=== PATIENT | female | born 1945 | race Caucasian/White ===

== ENCOUNTER 2019-05-17 20:34 | Inpatient (IN) | payer MEDICARE ==
[2019-05-18 01:11] VITALS: BMI 38.2
[2019-05-18] MEDS ORDERED: VANCOMYCIN IV PER PHARMACY 1 EACH MISC MISCELLANE PRN (03:45)
[2019-05-18] MEDS ORDERED: VANCOMYCIN 1,000 MG in SODIUM CHLORIDE 0.9% 250 ML IVPB STA (03:45)
[2019-05-18] MEDS ORDERED: ONDANSETRON 4 MG/2 ML VIAL IVP PRN (03:47)
[2019-05-18] MEDS ORDERED: VANCOMYCIN 1,750 MG in SODIUM CHLORIDE 0.9% 500 ML 500 ML IVPB ONE (05:00)
[2019-05-18] MEDS: SODIUM CHLORIDE 0.9% 1,000 ML IV SCH ×2 (05:24→21:59)
[2019-05-18] MEDS: HYDROcodone/APAP 5-325MG 1 EACH TAB PO PRN ×2 (06:06→22:26)
[2019-05-18] MEDS: PIPERACILLIN-TAZOBACTAM 3.375 GM in SODIUM CHLORIDE 0.9% 100 ML IVPB SCH ×3 (07:11→21:59)
[2019-05-18 07:17] LABS: Glucose,Whole Blood 175 mg/dL (75-99)
[2019-05-18] MEDS: INSULIN ASPART (NovoLOG) 100 UNIT/ML VIAL SQ SCH ×5 (07:47→22:02)
[2019-05-18] MEDS: GLIMEPIRIDE 4 MG TAB PO SCH (07:47)
[2019-05-18] MEDS: GABAPENTIN 300 MG CAP PO SCH ×3 (07:48→21:57)
[2019-05-18 09:10] LABS: INR 0.8 (<1.2); Prothrombin Time 9.3 sec (9.0-12.0)
[2019-05-18] MEDS ORDERED: TEMAZEPAM 15 MG CAP PO PRN (09:32)
[2019-05-18] MEDS ORDERED: ALPRAZolam 0.25 MG TAB PO PRN (09:32)
[2019-05-18 10:00] LABS: HCT 31.8 % (34.0-46.0); HGB 10.9 gm/dL (11.4-16.0); MCH 30.4 pg (25.0-35.0); MCHC 34.2 g/dL (31.0-37.0); MCV 88.9 fL (80.0-100.0); Mean Platelet Volume 7.5; Platelet Count 244 k/uL (150-450); RBC 3.58 m/uL (3.80-5.40); WBC 8.6 k/uL (3.8-10.6)
[2019-05-18] MEDS: MORPHINE SULFATE 4 MG/ML SYRINGE IVP PRN ×2 (11:15→15:25)
[2019-05-18 11:52] LABS: Glucose,Whole Blood 117 mg/dL (75-99)
--- NOTE | 2019-05-18 15:13 | HP ---
HISTORY AND PHYSICAL DATE OF SERVICE: 05/18/2019 CHIEF COMPLAINT: Pain and swelling of the right thigh. HISTORY OF PRESENT ILLNESS: This is a 73-year-old woman with a past history of diabetes mellitus, GERD, hypertension, hyperlipidemia being followed by primary physician in the [place] area, is [place] in [place]. The patient noted infection and swelling in the right thigh for the past several days. tried to express some pus and subsequently because of lack of improvement, patient came to [facility] and patient did get transferred to [facility], admitted for further evaluation and treatment. There is no history of fever, chills, or rigors. No history of headache, loss of consciousness, seizures. Broad-spectrum antibiotics initiated. Infectious Disease and surgical evaluation has been sought. PAST MEDICAL HISTORY: Diabetes, GERD, hypertension, hyperlipidemia. MEDICATIONS: Prior to admission home medications are: 1. Neurontin 300 mg q. 3 days. 2. NovoLog a.c. t.i.d. 3. Tresiba 100 units subcu daily. 4. Prilosec 20 mg daily. 5. Toprol-XL 100 mg b.i.d. 6. Amaryl 4 mg p.o. daily. 7. Flonase 1-2 sprays daily. 8. Multivitamin 1 p.o. daily. 9. Lipitor 20 mg daily. 10.Amitriptyline 10 mg q.h.s. p.r.n. ALLERGIES: None. FAMILY HISTORY: History of lung cancer. SOCIAL HISTORY: No history of smoking. No history of alcohol. REVIEW OF SYSTEMS: ENT: No diminished vision. No diminished hearing. CARDIOVASCULAR SYSTEM: No angina or palpitation. RESPIRATORY: As mentioned earlier. GI: No nausea. : No dysuria. NERVOUS SYSTEM: No numbness or weakness. ALLERGY/IMMUNOLOGY: No asthma or hayfever. MUSCULOSKELETAL: As mentioned earlier. RHEUMATOLOGY: Negative. ENDOCRINE: No diabetes or hypothyroidism. CONSTITUTIONAL: As mentioned earlier. DERMATOLOGY: As mentioned earlier. RHEUMATOLOGY: Negative. PSYCHIATRY: As mentioned earlier. PHYSICAL EXAMINATION: Patient is alert and oriented x3. Pulse 81, blood pressure 153/79, respiration 16, temperature 97.8, pulse ox 94% on room air. HEENT: Oral mucosa moist. NECK: No jugular venous distention. No lymph node enlargement. CARDIOVASCULAR SYSTEM: S1, S2, muffled. RESPIRATION: Breath sounds diminished at the bases, no rhonchi, no crackles. ABDOMEN: Soft, obese, nontender. No mass palpable. LEGS: Significant pain and swelling and some with discharge with significant purulent bloody discharge from the abscess, about 3 x 4 cm with minimal fluctuation in the right posterior thigh present. Pulses felt normally. NERVOUS SYSTEM: As mentioned earlier. Moves all 4 limbs, no focal deficits. LYMPHATICS: No lymph node enlargement. SKIN: As mentioned earlier. JOINTS: No active arthropathy. LABS: WBC 8.7, hemoglobin IS 10.9, creatinine 1.5. ASSESSMENT: 1. Acute abscess of the right thigh with failure of outpatient treatment. 2. Increased creatinine with chronic kidney disease stage III. 3. Anemia of chronic disease, normocytic. 4. Diabetes mellitus type 2. 5. Gastroesophageal reflux disease. 6. Hyperlipidemia. 7. Obesity with body mass index 38.3. RECOMMENDATION: In this 73-year-old woman who presented with multiple medical issues, will monitor the patient closely. Continue with the current management and symptomatic treatment. Will initiate broad-spectrum IV antibiotics. Obtain cultures. DVT prophylaxis. Monitor blood sugars closely, insulin coverage. Infectious Disease and Surgical evaluation. I also recommend a CAT scan of the right thigh without any contrast. Guarded prognosis. Further recommendations to follow. MMODL / IJN: [id number] /
--- NOTE | 2019-05-18 15:32 | P.GSCN ---
History of Present Illness Consult date: 05/18/19 Reason for Consult: right thigh abscess Requesting physician: Shanel Patel History of present illness: CHIEF COMPLAINT: Right thigh abscess HISTORY OF PRESENT ILLNESS: 73-year-old female who was transferred from [facility] secondary to right thigh abscess. Patient states she has a abscess to her posterior right thigh that has been getting worse over the past week. She was evaluated at [facility]. She reports it was drained by the ER physician at [place]. Dressing to right thigh currently with packing noted. Some purulent fluid noted. Patient reports pain is tolerable to right thigh. General surgery was consulted for further evaluation. PAST MEDICAL HISTORY: See list. PAST SURGICAL HISTORY: See list. SOCIAL HISTORY: No illicit drug use. REVIEW OF SYSTEMS: CONSTITUTIONAL: Denies fever or chills. HEENT: Denies blurred vision, vision changes, or eye pain. Denies hemoptysis CARDIOVASCULAR: Denies chest pain or pressure. RESPIRATORY: No shortness of breath. GASTROINTESTINAL: Refer to [facility] for pertinent findings HEMATOLOGIC: Denies bleeding disorders. GENITOURINARY: Denies any blood in urine. SKIN: Reports abscess to right thigh. Denies pruitis. Denies rash. PHYSICAL EXAM: VITAL SIGNS: Reviewed. GENERAL: Well-developed in no acute distress. HEENT: No sclera icterus. Extraocular movements grossly intact. Moist buccal mucosa. Head is atraumatic, normocephalic. ABDOMEN: Soft. Nondistended. Nontender. NEUROLOGIC: Alert and oriented. Cranial nerves II through XII grossly intact. SKIN: Open wound to right choir leader thigh, approximately the size of a quarter with packing present. Surrounding erythema. Some purulent drainage noted. Mild tenderness. LABORATORY DATA: WBC 8.6. Hemoglobin 10.9. ASSESSMENT: 1. Right thigh abscess PLAN: Patient evaluated with Dr. Fleming. Wound is open and currently draining. Continue daily dressing changes. Wound cultures ordered. await results. Continue IV antibiotics. Recommend tight glucose control for optimal healing. CAT scan has been ordered by internal medicine. Await results. No surgical intervention recommended at this time. Continue conservative management. Nurse practitioner note has been reviewed by physician. Signing provider agrees with the documented findings, assessment, and plan of care. Past Medical History Past Medical History: Diabetes Mellitus, Eye Disorder, GERD/Reflux, Hyperlipidemia, Hypertension History of Any Multi-Drug Resistant Organisms: None Reported Past Psychological History: No Psychological Hx Reported Smoking Status: Never smoker Past Alcohol Use History: None Reported Past Drug Use History: None Reported - Past Family History Father Family Medical History: Cancer Additional Family Medical History / Comment(s): at 67 from lung cancer. Mother Family Medical History: Cancer Additional Family Medical History / Comment(s): at 67 from lung cancer. Medications and Allergies Home Medications Medication Instructions Recorded Confirmed Type Amitriptyline HCl 10 mg PO HS PRN 05/18/19 05/18/19 History Atorvastatin Calcium [Lipitor] 20 mg PO DAILY 05/18/19 05/18/19 History Fluticasone Nasal [place] [Flonase 1 - 2 spray EA NOSTRIL DAILY 05/18/19 05/18/19 History Nasal [place]] Gabapentin [Neurontin] 300 mg PO Q3H MDD 7 CAPS 05/18/19 05/18/19 History Glimepiride [Amaryl] 4 mg PO DAILY 05/18/19 05/18/19 History Insulin Aspart [NovoLOG Flexpen] See Protocol SQ AC-TID 05/18/19 05/18/19 History Insulin Degludec [Tresiba 100 units SQ DAILY 05/18/19 05/18/19 History Flextouch U-200] Metoprolol Succinate [Toprol XL] 100 mg PO DAILY 05/18/19 05/18/19 History Multivitamins, Thera [Multivitamin 1 tab PO DAILY 05/18/19 05/18/19 History (formulary)] Omeprazole [PriLOSEC] 20 mg PO DAILY 05/18/19 05/18/19 History Allergies Allergy/AdvReac Type Severity Reaction Status Date / Time No Known Allergies Allergy Verified 05/18/19 08:36 Surgical - Exam Vital Signs Temp Pulse Resp BP Pulse Ox 97.7 F 79 20 172/81 95 05/17/19 23:55 05/17/19 23:55 05/17/19 23:55 05/17/19 23:55 05/17/19 23:55 Results - Labs 05/18/19 08:28 05/18/19 08:37 Abnormal Lab Results - Last 24 Hours (Table) 05/18/19 05/18/19 05/18/19 Range/Units 07:13 08:28 08:37 RBC 3.58 L (3.80-5.40) m/uL Hgb 10.9 L (11.4-16.0) gm/dL Hct 31.8 L (34.0-46.0) % Creatinine 1.51 H (0.52-1.04) mg/dL POC Glucose (mg/dL) 175 H (75-99) mg/dL 05/18/19 Range/Units 11:42 RBC (3.80-5.40) m/uL Hgb (11.4-16.0) gm/dL Hct (34.0-46.0) % Creatinine (0.52-1.04) mg/dL POC Glucose (mg/dL) 117 H (75-99) mg/dL Diabetes panel 05/18/19 Range/Units 08:37 Creatinine 1.51 H (0.52-1.04) mg/dL Pituitary panel 05/18/19 Range/Units 08:37 Creatinine 1.51 H (0.52-1.04) mg/dL Adrenal panel 05/18/19 Range/Units 08:37 Creatinine 1.51 H (0.52-1.04) mg/dL
--- NOTE | 2019-05-18 16:52 | CT ---
EXAMINATION TYPE: CT lower extremity RT wo con DATE OF EXAM: 05/18/2019 COMPARISON: None HISTORY: 73-year-old female Posterior right thigh abscess x 1 week. TECHNIQUE: Contiguous axial scanning of the right thigh without IV contrast. Coronal and sagittal rec onstructions performed. CT DLP: 615 mGycm Automated exposure control for dose reduction was used. FINDINGS: Moderate degenerative change of the right hip. Cutaneous soft tissue swelling along the posterior aspect of the thigh, greater proximally. At the posterior mid thigh level, there is soft tissue wound extending 1 cm deep to the skin surface and measuring 1.4 cm wide. No discrete abscess is identified. No soft tissue air or edema along the deeper fascial planes of the thigh. No osseous erosions. Moderate knee joint effusion. No Mehta's cyst. Patellofemoral compartment osteoarthrosis. IMPRESSION: EXTENSIVE POSTERIOR THIGH CELLULITIS WITH A 1.4 CM WIDE AND 1 CM DEEP WOUND AT THE MID THIGH LEVEL. N O DISCRETE ABSCESS. NO SPECIFIC SIGNS OF A DEEPER, MORE AGGRESSIVE SOFT TISSUE INFECTION.
[2019-05-18 17:05] LABS: Glucose,Whole Blood 140 mg/dL (75-99)
[2019-05-18 20:30] LABS: Glucose,Whole Blood 280 mg/dL (75-99)
[2019-05-18] MEDS ORDERED: PANTOPRAZOLE 40 MG TABLET PO SCH (21:00)
[2019-05-18] MEDS: AMITRIPTYLINE HCL 10 MG TAB PO SCH (21:57)
[2019-05-18] MEDS: HEPARIN SODIUM,PORCINE 5,000 UNIT/ML 1 ML VIAL SQ SCH (21:58)
[2019-05-18] MEDS: METOPROLOL SUCCINATE (ER) 100 MG TAB.ER.24H PO SCH (21:58)
[2019-05-18] MEDS: ATORVASTATIN 20 MG TAB PO SCH (21:58)
[2019-05-19 02:23] LABS: Glucose,Whole Blood 112 mg/dL (75-99)
[2019-05-19] MEDS: PIPERACILLIN-TAZOBACTAM 3.375 GM in SODIUM CHLORIDE 0.9% 100 ML IVPB SCH ×2 (05:21→13:05)
[2019-05-19] MEDS ORDERED: INSULIN DETEMIR (LEVEMIR) 100 UNIT/ML SYR SQ SCH (07:00)
[2019-05-19 07:17] LABS: Glucose,Whole Blood 80 mg/dL (75-99)
--- NOTE | 2019-05-19 07:18 | P.CONS ---
History of Present Illness - Reason for Consult Consult date: 05/18/19 - Chief Complaint pain right thigh - History of Present Illness 73-year-old woman has a history of diabetes that is usually well controlled last hemoglobin A1c was 6.9, relates that she was do not well the sudden onset of a lesion on the posterior aspect of her right thigh. It started as a small swollen red spot with a couple of days and become quite large and it was swollen and erythematous and had what appeared to be improvement center. Because of this the patient's manipulated the area and was poking it with needles to try to get it to drain. The area did not drain and it worsens dramatically over the next 24 hours,/presents to her local hospital which [place]. She was cared for there for about 2 days because of her lack of improvement she was transferred to our facility for surgical consultation. She this time continues to have severe pain to the right posterior thigh. Although slightly better than admission because of pain control. She has denying high-grade fevers chills rigors or sweats. She's never had difficulty like this in the past. She does not recall any specific injury, she however is in what she calls her summer mode, staying in their fifth wheel at the local campground spending a lot of time outside but does not recall any specific injuries, or bug bites. Review of Systems Patient which is much more comfortable than at her original presentation HEENT:Denies headache or acute visual change. Denies sinus or mouth discomforts. Denies neck stiffness or pain. Denies significant oral cavity pain. Denies difficulty on swallowing. Lungs: Denies significant shortness of breath, cough, sputum production, or hemoptysis. Cardiovascular: Denies significant shortness of breath, chest pain, chest wall pain, orthopnea, dyspnea on exertion, syncope Gastrointestinal:Denies nausea, vomiting, diarrhea, constipation, hematemesis, melena, hematochezia. No no significant change of bowel habit noticed. Musculoskeletal: denies significant myalgias or arthralgias. No new joint swelling. Denies new back pain. Skin: The large swollen erythematous tender spot right posterior thigh Neuro: Denies headache or visual change. Denies any new onset weakness or difficulty with ambulation. Denies falls or seizures. Psychiatric:Denies anxiety or depression. Endocrine: Denies significant fatigue, denies significant weight loss or weight gain. Past Medical History Past Medical History: Diabetes Mellitus, Eye Disorder, GERD/Reflux, Hyperl ipidemia, Hypertension History of Any Multi-Drug Resistant Organisms: None Reported Past Psychological History: No Psychological Hx Reported Additional Psychological History / Comment(s): lives with her and family home. Baseline [place] up with the campground in [facility]. She has no recent international travel. She does not have pets Smoking Status: Never smoker Past Alcohol Use History: None Reported Past Drug Use History: None Reported - Past Family History Father Family Medical History: Cancer Additional Family Medical History / Comment(s): at 67 from lung cancer. Mother Family Medical History: Cancer Additional Family Medical History / Comment(s): at 67 from lung cancer. Medications and Allergies Home Medications and Allergies Comment(s): Current Medications Hydrocodone Bitart/Acetaminophen ([place] 5-325) 1 each PO Q6HR PRN PRN Reason: Pain Last Admin: 05/18/19 22:26 Dose: 1 each Documented by: Alprazolam (Xanax) 0.25 mg PO TID PRN PRN Reason: Anxiety Amitriptyline HCl (Elavil) 10 mg PO [facility] Last Admin: 05/18/19 21:57 Dose: 10 mg Documented by: Atorvastatin Calcium (Lipitor) 20 mg PO [facility] Last Admin: 05/18/19 21:58 Dose: 20 mg Documented by: Fluticasone Propionate (Flonase Nasal [place]) 1 - 2 spray EA NOSTRIL DAILY [facility] Gabapentin (Neurontin) 600 mg PO TID [facility] Last Admin: 05/18/19 21:57 Dose: 600 mg Documented by: Glimepiride (Amaryl) 4 mg PO AC-BRKFST [facility] Last Admin: 05/18/19 07:47 Dose: 4 mg Documented by: Heparin Sodium (Porcine) (Heparin) 5,000 unit SQ Q12HR [facility] Last Admin: 05/18/19 21:58 Dose: 5,000 unit Documented by: Sodium Chloride (Saline 0.9%) 1,000 mls @ 50 mls/hr IV .Q20H [facility] Last Admin: 05/18/19 21:59 Dose: 50 mls/hr Documented by: Piperacillin Sod/Tazobactam (Sod 3.375 gm/ Sodium Chloride) 100 mls @ 25 mls/hr IVPB Q8H [facility] Last Admin: 05/19/19 05:21 Dose: 25 mls/hr Documented by: Vancomycin HCl 1,750 mg/ (Sodium Chloride) 500 mls @ 167 mls/hr IVPB Q36H [facility] Insulin Aspart (Novolog) 10 unit SQ HS [facility] Last Admin: 05/18/19 22:02 Dose: 10 unit Documented by: Insulin Aspart (Novolog) 0 unit SQ ACHS [facility]; Protocol Last Admin: 05/18/19 22:02 Dose: 7 unit Documented by: Insulin Detemir (Levemir) 100 unit SQ DAILY@0700 [facility] Metoprolol Succinate (Toprol Xl) 100 mg PO HS [facility] Last Admin: 05/18/19 21:58 Dose: 100 mg Documented by: Morphine Sulfate (Morphine Sulfate (Inj)) 4 mg IVP Q4HR PRN PRN Reason: Pain Last Admin: 05/18/19 15:25 Dose: 4 mg Documented by: Multivitamins (Theragran) 1 each PO DAILY [facility] Ondansetron HCl (Zofran) 4 mg IVP Q6HR PRN PRN Reason: Nausea And Vomiting Pantoprazole Sodium (Protonix) 40 mg PO AC-BRKFST [facility] Temazepam (Restoril) 15 mg PO HS PRN PRN Reason: Insomnia Home Medications Medication Instructions Recorded Confirmed Type Amitriptyline HCl 10 mg PO HS PRN 05/18/19 05/18/19 History Atorvastatin Calcium [Lipitor] 20 mg PO DAILY 05/18/19 05/18/19 History Fluticasone Nasal [place] [Flonase 1 - 2 spray EA NOSTRIL DAILY 05/18/19 05/18/19 History Nasal [place]] Gabapentin [Neurontin] 300 mg PO Q3H MDD 7 CAPS 05/18/19 05/18/19 History Glimepiride [Amaryl] 4 mg PO DAILY 05/18/19 05/18/19 History Insulin Aspart [NovoLOG Flexpen] See Protocol SQ AC-TID 05/18/19 05/18/19 History Insulin Degludec [Tresiba 100 units SQ DAILY 05/18/19 05/18/19 History Flextouch U-200] Metoprolol Succinate [Toprol XL] 100 mg PO DAILY 05/18/19 05/18/19 History Multivitamins, Thera [Multivitamin 1 tab PO DAILY 05/18/19 05/18/19 History (formulary)] Omeprazole [PriLOSEC] 20 mg PO DAILY 05/18/19 05/18/19 History Allergies Allergy/AdvReac Type Severity Reaction Status Date / Time No Known Allergies Allergy Verified 05/18/19 08:36 Physical Exam Vitals: Vital Signs Temp Pulse Resp BP Pulse Ox 05/19/19 05:00 97.1 F L 74 18 113/69 94 L 05/18/19 21:00 97.7 F 96 20 177/92 97 05/18/19 13:45 97.9 F 81 16 153/79 95 Intake and Output 05/18/19 05/19/19 05/19/19 22:59 06:59 14:59 Intake Total 350 350 Balance 350 350 Intake: Oral 350 350 Other: Voiding Method Toilet # Voids 2 2 Pleasant 73-year-old woman who is quite uncomfortable HEENT: Anicteric conjunctiva are pink and moist nasal mucosa grossly intact without significant lesions, there is no thrush. Neck: The neck is supple without significant lymphadenopathy or thyromegaly. Lungs: Good bilateral air entry without significant crackles or wheezing. There is no significant bronchial sounds. There is no egophony or dullness. Heart: Regular rate and rhythm with an audible S1-S2, no S3 no S4. There is no significant murmur click or rub, PMI was nondisplaced. Abdomen: Positive bowel sounds soft and nontender without palpable masses or organomegaly. There was no guarding or rebound. Extremities: The upper extremities have excellent pulses they are symmetric, no significant petechiae or telangiectasia. No splinter hemorrhages were noted. The bilateral lower extremities have only trace pedal edema. The feet have no swelling. There is evidence of the significant pain and tenderness and swelling to the right posterior thigh. Skin defect is noted. There is no large amount of purulent material can be expressed suggestions to be serous at this time. The site is extremely tender to manipulation. Neuro: Awake alert oriented to person place and time. There are no acute new gross focal sensory motor deficits. Results CBC & Chem 7: 05/18/19 08:28 05/18/19 08:37 Labs: Abnormal Lab Results - Last 24 Hours (Table) 0905/18/19 05/18/19 Range/Units 07:13 08:28 08:37 RBC 3.58 L (3.80-5.40) m/uL Hgb 10.9 L (11.4-16.0) gm/dL Hct 31.8 L (34.0-46.0) % Creatinine 1.51 H (0.52-1.04) mg/dL POC Glucose (mg/dL) 175 H (75-99) mg/dL 05/18/19 05/18/19 05/18/19 Range/Units 11:42 17:01 20:10 RBC (3.80-5.40) m/uL Hgb (11.4-16.0) gm/dL Hct (34.0-46.0) % Creatinine (0.52-1.04) mg/dL POC Glucose (mg/dL) 117 H 140 H 280 H (75-99) mg/dL 05/19/19 Range/Units 02:19 RBC (3.80-5.40) m/uL Hgb (11.4-16.0) gm/dL Hct (34.0-46.0) % Creatinine (0.52-1.04) mg/dL POC Glucose (mg/dL) 112 H (75-99) mg/dL Microbiology - Last 24 Hours (Table) 05/18/19 11:00 Gram Stain - Preliminary Thigh - Right Wound Culture - Preliminary 05/18/19 11:00 Anaerobic Culture - Preliminary Drainage Laboratory Results WBC 8.6 k/uL (3.8-10.6) 05/18/19 08:28 RBC 3.58 m/uL (3.80-5.40) L 05/18/19 08:28 Hgb 10.9 gm/dL (11.4-16.0) L 05/18/19 08:28 Hct 31.8 % (34.0-46.0) L 05/18/19 08:28 MCV 88.9 fL (80.0-100.0) 05/18/19 08:28 MCH 30.4 pg (25.0-35.0) 05/18/19 08:28 MCHC 34.2 g/dL (31.0-37.0) 05/18/19 08:28 RDW 14.0 % (11.5-15.5) 05/18/19 08:28 Plt Count 244 k/uL (150-450) 05/18/19 08:28 PT 9.3 sec (9.0-12.0) 05/18/19 08:33 INR 0.8 (<1.2) 05/18/19 08:33 Creatinine 1.51 mg/dL (0.52-1.04) H 05/18/19 08:37 Est GFR (CKD-EPI)AfAm 39 (>60 ml/min/1.73 sqM) 05/18/19 08:37 Est GFR (CKD-EPI)NonAf 34 (>60 ml/min/1.73 sqM) 05/18/19 08:37 POC Glucose (mg/dL) 112 mg/dL (75-99) H 05/19/19 02:19 POC Glu Cold Strip Feeder ID Marylou Mathis 05/19/19 02:19 NT-Pro-B Natriuret Pep 615 pg/mL 05/18/19 08:33 Microbiology 05/18/19 11:00 Thigh - Right Gram Stain - Preliminary 05/18/19 11:00 Thigh - Right Wound Culture - Preliminary 05/18/19 11:00 Drainage Anaerobic Culture - Preliminary Assessment and Plan (1) Abscess of right thigh Narrative/Plan: Pleasant 70-year-old woman who has a history of diabetes mellitus type 2 she is under good control at this point in time with hemoglobin A1c under 7 for quite some time. She feels quite well but had a sudden onset of the significant pain and swelling to the posterior aspect of the right thigh. The area of concern rapidly worsened and became swollen and then developed what appeared to be improvement area. Her . The site and did use a needle try to get brain which was not successful. Afterwards the site became considerably worse the pain and swelling redness rapidly increased and she presented to the local emergency center by the camp[place]. She was therefore short period of time. A surgical consult was needed was transferred to our facility. Is on the computed tomography scan shows evidence of the extensive cellulitis and the skin defect. No drainable fluid collection was noted by the computed tomography scan. If this time antibiotic therapy has been provided with vancomycin and Zosyn pending further culture results. The from the outside hospital be helpful and we've asked for those cultures. Will attempt to de- escalate antibiotic therapy quite quickly, this process is usually staphylococcal in nature. Current Visit: Yes Status: Acute Code(s): L02.415 - CUTANEOUS ABSCESS OF RIGHT LOWER LIMB SNOMED Code(s): 92148970495791333 (2) Cellulitis of right thigh Current Visit: Yes Status: Acute Code(s): L03.115 - CELLULITIS OF RIGHT LOWER LIMB SNOMED Code(s): 40601861319868704 (3) Diabetes mellitus type 2, controlled Current Visit: Yes Status: Acute Code(s): E11.9 - TYPE 2 DIABETES MELLITUS WITHOUT COMPLICATIONS SNOMED Code(s): 90243017 (4) Obesity (BMI 30-39.9) Current Visit: Yes Status: Acute Code(s): E66.9 - OBESITY, UNSPECIFIED SNOMED Code(s): 770979020
[2019-05-19] MEDS: INSULIN ASPART (NovoLOG) 100 UNIT/ML VIAL SQ SCH ×5 (08:34→20:44)
[2019-05-19] MEDS: PANTOPRAZOLE 40 MG TABLET PO SCH (08:52)
[2019-05-19] MEDS: GLIMEPIRIDE 4 MG TAB PO SCH (08:52)
[2019-05-19] MEDS: HYDROcodone/APAP 5-325MG 1 EACH TAB PO PRN ×3 (08:52→22:38)
[2019-05-19] MEDS: GABAPENTIN 300 MG CAP PO SCH ×3 (08:52→20:43)
[2019-05-19] MEDS: FLUTICASONE 50MCG/SPRAY NASAL 16GM EA NOSTRIL SCH (08:53)
[2019-05-19] MEDS: MULTIVITAMINS, THERA 1 EACH TAB PO SCH (08:53)
[2019-05-19] MEDS: HEPARIN SODIUM,PORCINE 5,000 UNIT/ML 1 ML VIAL SQ SCH ×2 (08:54→20:43)
[2019-05-19] MEDS ORDERED: TRESIBA SQ SCH (09:00)
[2019-05-19 10:04] LABS: Basophils # (A) 0.1 k/uL (0-0.2); Basophils % (A) 1 %; Eosinophils # (A) 0.3 k/uL (0-0.7); Eosinophils % (A) 3 %; HCT 36.8 % (34.0-46.0); HGB 12.1 gm/dL (11.4-16.0); Lymphocytes # (A) 2.1 k/uL (1.0-4.8); Lymphocytes % (A) 22 %; MCH 29.8 pg (25.0-35.0); MCV 90.3 fL (80.0-100.0); Mean Platelet Volume 7.6; Monocytes # (A) 0.5 k/uL (0-1.0); Monocytes % (A) 5 %; Neutrophils # (A) 6.7 k/uL (1.3-7.7); Neutrophils % (A) 68 %; Platelet Count 308 k/uL (150-450); RBC 4.07 m/uL (3.80-5.40); RDW 13.7 % (11.5-15.5); WBC 9.8 k/uL (3.8-10.6)
[2019-05-19 10:05] LABS: Potassium 4.7 mmol/L (3.5-5.1)
--- NOTE | 2019-05-19 11:07 | P.PN ---
Progress Note - Text Progress Note Date: 05/19/19 Patient feels better today. On exam there is less induration at her right posterior thigh abscess site. The wound appears clean. Status post incision and drainage of right posterior thigh abscess. Patient received IV antibiotics and local wound care.
[2019-05-19 12:12] LABS: Glucose,Whole Blood 246 mg/dL (75-99)
[2019-05-19] MEDS: TRESIBA SQ SCH (13:03)
[2019-05-19] MEDS ORDERED: VANCOMYCIN 1,750 MG in SODIUM CHLORIDE 0.9% 500 ML 500 ML IVPB SCH (17:00)
[2019-05-19 17:42] LABS: Glucose,Whole Blood 286 mg/dL (75-99)
--- NOTE | 2019-05-19 19:57 | PN ---
PROGRESS NOTE DATE OF SERVICE: 05/19/2019 This 73-year-old woman who was admitted with acute abscess of the right thigh with failure of outpatient treatment is being closely monitored at this time. The patient has spontaneous drainage. The CT scan findings are noted. Patient has been seen by Infectious Disease and Surgery also. The patient is on broad IV antibiotics. Final cultures are pending at this time. EXAM: Alert and oriented x3. Pulse is 80, blood pressure is 120/76, respiration 18, temperature 98.2, pulse ox 94% on room air. HEENT: Conjunctivae normal. Oral mucosa moist. NECK: No jugular venous distention. No lymph node enlargement. CARDIOVASCULAR: S1, S2. RESPIRATORY: Diminished breath sounds at the bases. No rhonchi, no crackles. ABDOMEN: Soft, nontender. LEGS: Significant swelling and drainage of the right posterior thigh. NERVOUS SYSTEM: No focal deficits. LABS: Creatinine is 1.49 which is stable. Glucose elevated. ASSESSMENT: 1. Acute abscess of the right posterior thigh with failure of outpatient treatment, spontaneously draining. 2. Increased creatinine with chronic kidney disease stage III. 3. Anemia of chronic disease, normocytic. 4. Diabetes mellitus type 2. 5. Gastroesophageal reflux disease. 6. Hyperlipidemia. 7. Obesity with body mass index of 38.3. RECOMMENDATIONS AND DISCUSSION: Recommend to continue current management and continue symptomatic treatment. The cultures are showing presumptive Staph aureus at this time. The patient is on IV vancomycin. We will continue to monitor. Guarded prognosis. Further recommendations to follow. Closely follow with infectious disease. MMODL / IJN: [id number] /
[2019-05-19 20:41] LABS: Glucose,Whole Blood 266 mg/dL (75-99)
[2019-05-19] MEDS: AMITRIPTYLINE HCL 10 MG TAB PO SCH (20:43)
[2019-05-19] MEDS: ATORVASTATIN 20 MG TAB PO SCH (20:43)
[2019-05-19] MEDS: METOPROLOL SUCCINATE (ER) 100 MG TAB.ER.24H PO SCH (20:43)
[2019-05-19] MEDS: SODIUM CHLORIDE 0.9% 1,000 ML IV SCH (20:44)
[2019-05-20] MEDS: INSULIN ASPART (NovoLOG) 100 UNIT/ML VIAL SQ SCH ×5 (07:08→21:16)
[2019-05-20 07:21] LABS: Glucose,Whole Blood 63 mg/dL (75-99)
[2019-05-20 07:21] LABS: Glucose,Whole Blood 72 mg/dL (75-99)
[2019-05-20] MEDS: FLUTICASONE 50MCG/SPRAY NASAL 16GM EA NOSTRIL SCH (07:32)
[2019-05-20] MEDS: MULTIVITAMINS, THERA 1 EACH TAB PO SCH (07:32)
[2019-05-20] MEDS: GABAPENTIN 300 MG CAP PO SCH ×3 (07:32→21:15)
[2019-05-20] MEDS: HYDROcodone/APAP 5-325MG 1 EACH TAB PO PRN ×3 (07:32→21:59)
[2019-05-20] MEDS: PANTOPRAZOLE 40 MG TABLET PO SCH (07:32)
[2019-05-20] MEDS: HEPARIN SODIUM,PORCINE 5,000 UNIT/ML 1 ML VIAL SQ SCH ×2 (07:33→21:16)
[2019-05-20] MEDS: GLIMEPIRIDE 4 MG TAB PO SCH ×2 (07:33→15:13)
[2019-05-20 08:52] LABS: Basophils # (A) 0.1 k/uL (0-0.2); Basophils % (A) 1 %; Eosinophils # (A) 0.3 k/uL (0-0.7); Eosinophils % (A) 4 %; HCT 35.3 % (34.0-46.0); HGB 11.8 gm/dL (11.4-16.0); Lymphocytes # (A) 1.9 k/uL (1.0-4.8); Lymphocytes % (A) 20 %; MCH 30.2 pg (25.0-35.0); MCHC 33.5 g/dL (31.0-37.0); MCV 90.1 fL (80.0-100.0); Mean Platelet Volume 7.4; Monocytes # (A) 0.5 k/uL (0-1.0); Monocytes % (A) 6 %; Neutrophils # (A) 6.4 k/uL (1.3-7.7); Neutrophils % (A) 68 %; Platelet Count 278 k/uL (150-450); RBC 3.92 m/uL (3.80-5.40); RDW 13.6 % (11.5-15.5); WBC 9.3 k/uL (3.8-10.6)
[2019-05-20 08:55] LABS: Calcium 9.4 mg/dL (8.4-10.2); Potassium 4.6 mmol/L (3.5-5.1)
--- NOTE | 2019-05-20 10:39 | P.PN ---
Progress Note - Text Progress Note Date: 05/20/19 The patient is resting comfortably in her bed. She denies any significant pain from her right groin sebaceous cyst site. She's had no further drainage or swelling. On exam the right groin sebaceous cyst shows no evidence of erythema or induration. Status post spontaneous drainage of right groin sebaceous cyst. Patient will be observed. There is no surgical intervention planned.
--- NOTE | 2019-05-20 10:44 | P.PN ---
Progress Note - Text Progress Note Date: 05/20/19 The patient's right posterior thigh abscess site is clean. There is no significant inflammation. We are still waiting for cultures. On exam the wound is packed. The wound is clean. There is no significant drainage. Status post incision and drainage of right posterior thigh abscess. Patient will be discharged home per medicine. No surgical intervention is planned.
[2019-05-20 11:45] LABS: Glucose,Whole Blood 297 mg/dL (75-99)
[2019-05-20] MEDS: TRESIBA SQ SCH (13:03)
[2019-05-20] MEDS: SODIUM CHLORIDE 0.9% 1,000 ML IV SCH (13:13)
[2019-05-20 17:19] LABS: Glucose,Whole Blood 203 mg/dL (75-99)
--- NOTE | 2019-05-20 18:41 | PN ---
PROGRESS NOTE DATE OF SERVICE: 05/20/2019. This 73-year-old woman who was admitted with acute thigh abscess is being closely monitored at this time. The culture showed Staph aureus which is MSSA. Infectious Disease and Surgery are following the patient closely. No chest pain. No palpitations. No fever. EXAM: Alert and oriented times three. Pulse 89, blood pressure 159/90, respiration 18, temperature 98.7, pulse ox 94% on room air. HEENT: Conjunctivae normal. NECK: No jugular venous distention. CARDIOVASCULAR: S1, S2 muffled. RESPIRATIONS: Breath sounds diminished in the bases. No rhonchi. No crackles. ABDOMEN is soft. Nontender. LEGS: Significant swelling and abscess with minimal drainage in the right posterior thigh. NERVOUS SYSTEM: No focal deficits. Surrounding cellulitis is improving. LABORATORY DATA: Labs are CBC within normal limits. Creatinine 1.62. ASSESSMENT: 1. Acute abscess of the right posterior thigh with failure of outpatient treatment with spontaneous drainage with MSSA. 2. Increased creatinine with chronic kidney stage 3. 3. Anemia of chronic disease, normocytic. 4. Diabetes mellitus type 2. 5. History of gastroesophageal reflux disease. 6. Hyperlipidemia. 7. Obesity with body mass index of 38.3. RECOMMENDATIONS AND DISCUSSION: Recommend to continue current medications, monitoring, management and symptomatic treatment. Otherwise, at this time, continue the antibiotics. Guarded prognosis because of multiple complex medical issues. Further recommendations to follow. I would recommend Kefzol at this point. MMODL / IJN: [id number] /
[2019-05-20 21:09] LABS: Glucose,Whole Blood 335 mg/dL (75-99)
[2019-05-20] MEDS: METOPROLOL SUCCINATE (ER) 100 MG TAB.ER.24H PO SCH (21:15)
[2019-05-20] MEDS: ATORVASTATIN 20 MG TAB PO SCH (21:15)
[2019-05-20] MEDS: AMITRIPTYLINE HCL 10 MG TAB PO SCH (21:21)
[2019-05-21 01:19] LABS: Glucose,Whole Blood 212 mg/dL (75-99)
[2019-05-21 07:35] LABS: Glucose,Whole Blood 160 mg/dL (75-99)
[2019-05-21] MEDS: PANTOPRAZOLE 40 MG TABLET PO SCH (08:00)
[2019-05-21] MEDS: MULTIVITAMINS, THERA 1 EACH TAB PO SCH (08:00)
[2019-05-21] MEDS: HEPARIN SODIUM,PORCINE 5,000 UNIT/ML 1 ML VIAL SQ SCH ×2 (08:00→21:43)
[2019-05-21] MEDS: FLUTICASONE 50MCG/SPRAY NASAL 16GM EA NOSTRIL SCH (08:00)
[2019-05-21] MEDS: GABAPENTIN 300 MG CAP PO SCH ×3 (08:00→21:42)
[2019-05-21] MEDS: INSULIN ASPART (NovoLOG) 100 UNIT/ML VIAL SQ SCH ×5 (08:01→21:41)
[2019-05-21] MEDS: HYDROcodone/APAP 5-325MG 1 EACH TAB PO PRN ×3 (08:01→23:37)
[2019-05-21] MEDS: GLIMEPIRIDE 4 MG TAB PO SCH (08:15)
[2019-05-21 10:20] LABS: Basophils # (A) 0.1 k/uL (0-0.2); Basophils % (A) 2 %; Eosinophils # (A) 0.3 k/uL (0-0.7); Eosinophils % (A) 5 %; HCT 35.8 % (34.0-46.0); Lymphocytes # (A) 1.8 k/uL (1.0-4.8); Lymphocytes % (A) 24 %; MCH 29.4 pg (25.0-35.0); MCHC 33.4 g/dL (31.0-37.0); MCV 87.9 fL (80.0-100.0); Mean Platelet Volume 7.6; Monocytes # (A) 0.4 k/uL (0-1.0); Monocytes % (A) 6 %; Neutrophils # (A) 4.9 k/uL (1.3-7.7); Neutrophils % (A) 63 %; Platelet Count 274 k/uL (150-450); RBC 4.08 m/uL (3.80-5.40); RDW 13.1 % (11.5-15.5); WBC 7.7 k/uL (3.8-10.6)
[2019-05-21] MEDS: SODIUM CHLORIDE 0.9% 1,000 ML IV SCH (10:28)
--- NOTE | 2019-05-21 10:37 | P.PN ---
Subjective Progress Note Date: 05/21/19 CHIEF COMPLAINT: Right thigh abscess HISTORY OF PRESENT ILLNESS: Patient examined at the bedside. She reports minimal pain to posterior thigh wound. She states there has been minimal drainage from site. Denies abdominal pain. Denies nausea or vomiting. Tolerating diet. Cultures positive for MSSA. PHYSICAL EXAM: VITAL SIGNS: Reviewed. GENERAL: Well-developed in no acute distress. HEENT: No sclera icterus. Extraocular movements grossly intact. Moist buccal mucosa. Head is atraumatic, normocephalic. ABDOMEN: Soft. Nondistended. Nontender. NEUROLOGIC: Alert and oriented. Cranial nerves II through XII grossly intact. SKIN: Dressing to right posterior thigh clean dry intact without drainage. Surrounding erythema improving. ASSESSMENT: 1. Right thigh abscess PLAN: Continue antibiotics Daily wound care No surgical intervention Discharge home per medicine Nurse practitioner note has been reviewed by physician. Signing provider agrees with the documented findings, assessment, and plan of care. Objective - Vital Signs Vital signs: Vital Signs Temp 97.5 F L 05/21/19 05:30 Pulse 85 05/21/19 05:30 Resp 20 05/21/19 05:30 BP 181/79 05/21/19 05:30 Pulse Ox 96 05/21/19 05:30 Intake & Output 05/20/19 05/21/19 05/21/19 18:59 06:59 18:59 Intake Total 600 Balance 600 Intake: Intake, IV Titration 600 Amount Sodium Chloride 0.9% 1, 600 000 ml @ 50 mls/hr IV . Q20H [facility] Rx#:[id number] Other: Voiding Method Toilet Toilet # Voids 1 3 - Labs CBC & Chem 7: 05/21/19 08:58 05/20/19 08:17 Labs: Abnormal Lab Results - Last 24 Hours (Table) 05/20/19 05/20/19 05/20/19 Range/Units 11:34 17:13 21:06 POC Glucose (mg/dL) 297 H 203 H 335 H (75-99) mg/dL 05/21/19 05/21/19 Range/Units 01:17 06:58 POC Glucose (mg/dL) 212 H 160 H (75-99) mg/dL Microbiology - Last 24 Hours (Table) 05/18/19 11:00 Anaerobic Culture - Preliminary Drainage 05/18/19 11:00 Gram Stain - Final Thigh - Right Wound Culture - Final Staphylococcus aureus
[2019-05-21 11:36] LABS: Calcium 9.8 mg/dL (8.4-10.2); Potassium 4.7 mmol/L (3.5-5.1)
[2019-05-21 11:43] LABS: Glucose,Whole Blood 172 mg/dL (75-99)
[2019-05-21] MEDS: TRESIBA SQ SCH (12:15)
[2019-05-21 13:36] VITALS: RESP 16
[2019-05-21 17:04] LABS: Glucose,Whole Blood 273 mg/dL (75-99)
--- NOTE | 2019-05-21 20:01 | PN ---
PROGRESS NOTE DATE OF SERVICE: 05/21/2019 This 73-year-old woman who was admitted with acute abscess of the right posterior thigh with failure of outpatient treatment is being closely monitored. No chest pain. No palpitations. No fever. On exam, alert and oriented x3. Pulse is 81, blood pressure 150/82, respirations 16, temperature 98 degrees, pulse ox 96% on room air. HEENT: Conjunctivae normal. NECK: No jugular venous distention. CARDIOVASCULAR SYSTEM: S1, S2 muffled. RESPIRATORY SYSTEM: Breath sounds diminished at the bases. A few scattered rhonchi and crackles. ABDOMEN: Soft, non-tender. No mass palpable. LEGS: No edema. No swelling. NERVOUS SYSTEM: No focal deficit. LABS: WBC 7.7, hemoglobin 12. Sodium 142, potassium 4.7, creatinine 1.48. ASSESSMENT: 1. Acute abscess of the right posterior thigh with failure of outpatient treatment with spontaneous drainage with methicillin-susceptible Staphylococcus aeruginosa. 2. Increased creatinine with chronic kidney disease, stage III. 3. Anemia of chronic disease, normocytic. 4. Diabetes mellitus, type 2. 5. Gastroesophageal reflux disease. 6. Hyperlipidemia. 7. Obesity with body mass index of 38.3. RECOMMENDATIONS AND DISCUSSION: I recommend to continue current medications, continue with the monitoring, symptomatic treatment. Continue with antibiotics. Follow closely with Surgery and Infectious Disease. Guarded prognosis. Further recommendations to follow. MMODL / IJN: [id number] /
[2019-05-21 21:10] LABS: Glucose,Whole Blood 287 mg/dL (75-99)
[2019-05-21] MEDS: METOPROLOL SUCCINATE (ER) 100 MG TAB.ER.24H PO SCH (21:42)
[2019-05-21] MEDS: ATORVASTATIN 20 MG TAB PO SCH (21:42)
[2019-05-21] MEDS: AMITRIPTYLINE HCL 10 MG TAB PO SCH (21:43)
[2019-05-22 05:45] VITALS: BP 137/74; PULSE 71; TEMP 97.6
[2019-05-22] MEDS: INSULIN ASPART (NovoLOG) 100 UNIT/ML VIAL SQ SCH ×2 (07:02→12:33)
[2019-05-22 07:03] LABS: Glucose,Whole Blood 99 mg/dL (75-99)
[2019-05-22] MEDS: GABAPENTIN 300 MG CAP PO SCH (07:03)
[2019-05-22] MEDS: FLUTICASONE 50MCG/SPRAY NASAL 16GM EA NOSTRIL SCH (07:03)
[2019-05-22] MEDS: HEPARIN SODIUM,PORCINE 5,000 UNIT/ML 1 ML VIAL SQ SCH (07:04)
[2019-05-22] MEDS: MULTIVITAMINS, THERA 1 EACH TAB PO SCH (07:04)
[2019-05-22] MEDS: PANTOPRAZOLE 40 MG TABLET PO SCH (07:04)
[2019-05-22] MEDS: GLIMEPIRIDE 4 MG TAB PO SCH (07:04)
[2019-05-22] MEDS: SODIUM CHLORIDE 0.9% 1,000 ML IV SCH (07:08)
[2019-05-22] MEDS: HYDROcodone/APAP 5-325MG 1 EACH TAB PO PRN (09:11)
--- NOTE | 2019-05-22 11:56 | P.PN ---
Subjective Progress Note Date: 05/22/19 CHIEF COMPLAINT: Right thigh abscess HISTORY OF PRESENT ILLNESS: Patient examined at the bedside. She reports minimal pain to posterior thigh wound. She states there has been minimal drainage from site. Denies abdominal pain. Denies nausea or vomiting. Tolerating diet. Cultures positive for MSSA. PHYSICAL EXAM: VITAL SIGNS: Reviewed. GENERAL: Well-developed in no acute distress. HEENT: No sclera icterus. Extraocular movements grossly intact. Moist buccal mucosa. Head is atraumatic, normocephalic. ABDOMEN: Soft. Nondistended. Nontender. NEUROLOGIC: Alert and oriented. Cranial nerves II through XII grossly intact. SKIN: Dressing to right posterior thigh clean dry intact without drainage. Surrounding erythema improving. ASSESSMENT: 1. Right thigh abscess PLAN: Continue antibiotics Daily wound care No surgical intervention Discharge home per medicine. We will sign off. Please reconsult if needed Nurse practitioner note has been reviewed by physician. Signing provider agrees with the documented findings, assessment, and plan of care. Objective - Vital Signs Vital signs: Vital Signs Temp 97.6 F 05/22/19 05:30 Pulse 71 05/22/19 05:30 Resp 16 05/22/19 08:00 BP 137/74 05/22/19 05:30 Pulse Ox 95 05/22/19 05:30 Intake & Output 05/21/19 05/22/19 05/22/19 18:59 06:59 18:59 Other: Voiding Method Toilet # Voids 1 2 # Bowel Movements 2 - Labs CBC & Chem 7: 05/21/19 08:58 05/21/19 08:58 Labs: Abnormal Lab Results - Last 24 Hours (Table) 05/21/19 05/21/19 Range/Units 16:20 21:09 POC Glucose (mg/dL) 273 H 287 H (75-99) mg/dL
[2019-05-22 12:02] LABS: Glucose,Whole Blood 151 mg/dL (75-99)
[2019-05-22] MEDS: TRESIBA SQ SCH (12:35)
--- NOTE | 2019-05-22 22:54 | P.PN ---
Subjective Progress Note Date: 05/22/19 73-year-old woman has a history of diabetes that is usually well controlled last hemoglobin A1c was 6.9, relates that she was do not well the sudden onset of a lesion on the posterior aspect of her right thigh. It started as a small swollen red spot with a couple of days and become quite large and it was swollen and erythematous and had what appeared to be improvement center. Because of this the patient's manipulated the area and was poking it with needles to try to get it to drain. The area did not drain and it worsens dramatically over the next 24 hours,/presents to her [place] hospital [place]. She was cared for there for about 2 days because of her lack of improvement she was transferred to our facility for surgical consultation. She this time continues to have severe pain to the right posterior thigh. Although slightly better than admission because of pain control. She has denying high-grade fevers chills rigors or sweats. She's never had difficulty like this in the past. She does not recall any specific injury, she however is in what she calls her summer mode, staying in their fifth wheel at the local campground spending a lot of time outside but does not recall any specific injuries, or bug bites. 05/22/2019 the patient is started to feel considerably better. The abscess to the right posterior thigh is much improved. Cultures show evidence of MSSA. No other abnormalities found. Objective - Vital Signs Vital signs: Vital Signs Temp 97.6 F 05/22/19 05:30 Pulse 71 05/22/19 05:30 Resp 16 05/22/19 08:00 BP 137/74 05/22/19 05:30 Pulse Ox 95 05/22/19 05:30 Intake & Output 05/22/19 05/22/19 05/23/19 06:59 18:59 06:59 Intake Total 540 Balance 540 Intake: Oral 540 Other: # Voids 2 1 - Exam Pleasant 73-year-old woman who is quite uncomfortable HEENT: Anicteric conjunctiva are pink and moist nasal mucosa grossly intact without significant lesions, there is no thrush. Neck: The neck is supple without significant lymphadenopathy or thyromegaly. Lungs: Good bilateral air entry without significant crackles or wheezing. There is no significant bronchial sounds. There is no egophony or dullness. Heart: Regular rate and rhythm with an audible S1-S2, no S3 no S4. There is no significant murmur click or rub, PMI was nondisplaced. Abdomen: Positive bowel sounds soft and nontender without palpable masses or organomegaly. There was no guarding or rebound. Extremities: The upper extremities have excellent pulses they are symmetric, no significant petechiae or telangiectasia. No splinter hemorrhages were noted. The bilateral lower extremities have only trace pedal edema. The feet have no swelling. There is evidence of the improvement of the pain and tenderness and swelling to the right posterior thigh. Skin defect is noted. There is no large amount of purulent material can be expressed suggestions to be serous at this time. The site is extremely tender to manipulation. Neuro: Awake alert oriented to person place and time. There are no acute new gross focal sensory motor deficits. It is packed with Iodosorb without difficulty - Labs CBC & Chem 7: 05/21/19 08:58 05/21/19 08:58 Labs: Abnormal Lab Results - Last 24 Hours (Table) 05/22/19 Range/Units 11:44 POC Glucose (mg/dL) 151 H (75-99) mg/dL Microbiology - Last 24 Hours (Table) 05/18/19 11:00 Anaerobic Culture - Final Drainage Laboratory Results WBC 7.7 k/uL (3.8-10.6) 05/21/19 08:58 RBC 4.08 m/uL (3.80-5.40) 05/21/19 08:58 Hgb 12.0 gm/dL (11.4-16.0) 05/21/19 08:58 Hct 35.8 % (34.0-46.0) 05/21/19 08:58 MCV 87.9 fL (80.0-100.0) 05/21/19 08:58 MCH 29.4 pg (25.0-35.0) 05/21/19 08:58 MCHC 33.4 g/dL (31.0-37.0) 05/21/19 08:58 RDW 13.1 % (11.5-15.5) 05/21/19 08:58 Plt Count 274 k/uL (150-450) 05/21/19 08:58 Neutrophils % 63 % 05/21/19 08:58 Lymphocytes % 24 % 05/21/19 08:58 Monocytes % 6 % 05/21/19 08:58 Eosinophils % 5 % 05/21/19 08:58 Basophils % 2 % 05/21/19 08:58 Neutrophils # 4.9 k/uL (1.3-7.7) 05/21/19 08:58 Lymphocytes # 1.8 k/uL (1.0-4.8) 05/21/19 08:58 Monocytes # 0.4 k/uL (0-1.0) 05/21/19 08:58 Eosinophils # 0.3 k/uL (0-0.7) 05/21/19 08:58 Basophils # 0.1 k/uL (0-0.2) 05/21/19 08:58 PT 9.3 sec (9.0-12.0) 05/18/19 08:33 INR 0.8 (<1.2) 05/18/19 08:33 Sodium 142 mmol/L (137-145) 05/21/19 08:58 Potassium 4.7 mmol/L (3.5-5.1) 05/21/19 08:58 Chloride 105 mmol/L (98-107) 05/21/19 08:58 Carbon Dioxide 27 mmol/L (22-30) 05/21/19 08:58 Anion Gap 10 mmol/L 05/21/19 08:58 BUN 24 mg/dL (7-17) H 05/21/19 08:58 Creatinine 1.48 mg/dL (0.52-1.04) H 05/21/19 08:58 Est GFR (CKD-EPI)AfAm 40 (>60 ml/min/1.73 sqM) 05/21/19 08:58 Est GFR (CKD-EPI)NonAf 35 (>60 ml/min/1.73 sqM) 05/21/19 08:58 Glucose 196 mg/dL (74-99) H 05/21/19 08:58 POC Glucose (mg/dL) 151 mg/dL (75-99) H 05/22/19 11:44 POC Glu Wellness Program Coordinator NILAM WaltonYennifer 05/22/19 11:44 Calcium 9.8 mg/dL (8.4-10.2) 05/21/19 08:58 NT-Pro-B Natriuret Pep 615 pg/mL 05/18/19 08:33 Microbiology 05/18/19 11:00 Drainage Anaerobic Culture - Final 05/18/19 11:00 Thigh - Right Gram Stain - Final 05/18/19 11:00 Thigh - Right Wound Culture - Final Staphylococcus aureus Assessment and Plan (1) Abscess of right thigh Narrative/Plan: Pleasant 70-year-old woman who has a history of diabetes mellitus type 2 she is under good control at this point in time with hemoglobin A1c under 7 for quite some time. She feels quite well but had a sudden onset of the significant pain and swelling to the posterior aspect of the right thigh. The area of concern rapidly worsened and became swollen and then developed what appeared to be improvement area. Her . The site and did use a needle try to get brain which was not successful. Afterwards the site became considerably worse the pain and swelling redness rapidly increased and she presented to the local emergency center by the [place] when she [place]. She was therefore short per iod of time. A surgical consult was needed was transferred to our facility. Is on the computed tomography scan shows evidence of the extensive cellulitis and the skin defect. No drainable fluid collection was noted by the computed tomography scan. If this time antibiotic therapy has been provided with vancomycin and Zosyn pending further culture results. The from the outside hospital be helpful and we've asked for those cultures. Will attempt to de- escalate antibiotic therapy quite quickly, this process is usually staphylococcal in nature. 05/22/2019 the patient has had marked improvement in is now much more comfortable. Cultures show evidence of MSSA antibiotic therapy as he escalated to oral cephalexin 500 mg every 8 hours. This prescription is sent to her pharmacy and she will be discharged home. will be able to pack the wound the, the nurses have trained him. Status: Acute Code(s): L02.415 - CUTANEOUS ABSCESS OF RIGHT LOWER LIMB SNOMED Code(s): 80921789988184533 (2) Cellulitis of right thigh Status: Acute Code(s): L03.115 - CELLULITIS OF RIGHT LOWER LIMB SNOMED Code(s): 38520319217083476 (3) Diabetes mellitus type 2, controlled Status: Acute Code(s): E11.9 - TYPE 2 DIABETES MELLITUS WITHOUT COMPLICATIONS SNOMED Code(s): 79776765 (4) Obesity (BMI 30-39.9) Status: Acute Code(s): E66.9 - OBESITY, UNSPECIFIED SNOMED Code(s): 446455140
--- NOTE | 2019-05-23 07:59 | DS ---
DISCHARGE SUMMARY DATE OF SERVICE: 05/22/2019 FINAL DIAGNOSES: 1. Acute abscess of the right posterior thigh with failure of outpatient treatment with spontaneous drainage with MSSA. 2. Increased creatinine with chronic kidney disease stage III. 3. Anemia of chronic disease, normocytic. 4. Diabetes mellitus type 2. 5. Gastroesophageal reflux disease. 6. Hyperlipidemia. 7. Obesity with body mass index 38.3. DISCHARGE DISPOSITION: The patient will be discharged in stable condition with guarded prognosis. HISTORY OF PRESENT ILLNESS: This 73-year-old woman was admitted with significant abscess of the right posterior thigh. The patient was seen by Infectious Disease and Surgery. noted. CT scan not show any other deep involvement. The patient improved significantly. MSSA was cultured. On exam, vitals are stable. CARDIOVASCULAR: S1, S2 muffled. ABDOMEN: Soft. NERVOUS SYSTEM: No focal deficits. EXAMINATION OF THE RIGHT THIGH: Some swelling present. DISCHARGE ADVICE: 1. Diet is cardiac. 2. Activity limited until followup. 3. Follow up with a primary physician in 2 to 3 days. 4. Follow up with Surgery and Infectious Disease as recommended. Medications are as follows: 1. Amaryl 4 mg p.o. daily. 2. Amitriptyline 10 mg q.h.s. p.r.n. 3. Flonase nasal spray 1 to 2 sprays daily. 4. Lipitor 20 mg daily. 5. Multivitamins one p.o. daily. 6. Neurontin 300 mg q.3 hours. 7. NovoLog FlexPen. 8. Prilosec 20 mg daily. 9. Toprol XL 100 mg p.o. daily. 10.Insulin Degludec 100 units subcu daily. 11.Keflex 500 mg q.8 for 1 week. Once again, the patient will be discharged in stable condition with guarded prognosis. MMODL / IJN: [id number] / MTDD
== END 2019-05-22 14:04 | disposition home or self-care (01) | DRG 603 ==
LOC: 4MS4W 05-18 00:26
PROVIDERS: ADMIT Hospitalist; ATTEND Hospitalist
DX: L02.415 Cutaneous abscess of right lower limb (principal); N18.3 Chronic kidney disease, stage 3 (moderate); E11.22 Type 2 diabetes mellitus with diabetic chronic kidney disease; I12.9 Hypertensive chronic kidney disease with stage 1 through stage 4 chronic kidney disease, or unspecified chronic kidney disease; E66.9 Obesity, unspecified; D63.8 Anemia in other chronic diseases classified elsewhere; K21.9 Gastro-esophageal reflux disease without esophagitis; E78.5 Hyperlipidemia, unspecified; L72.3 Sebaceous cyst; B95.61 Methicillin susceptible Staphylococcus aureus infection as the cause of diseases classified elsewhere; L03.115 Cellulitis of right lower limb; Z79.4 Long term (current) use of insulin; Z79.899 Other long term (current) drug therapy; Z68.38 Body mass index [BMI] 38.0-38.9, adult; Z80.1 Family history of malignant neoplasm of trachea, bronchus and lung
CPT/HCPCS: 80048; 82565; 83880; 85025; 85027; 85610; 87070; 87075; 87077; 87186; 87205